=== PATIENT | female | born 1995 | race Hispanic/Latino ===

== ENCOUNTER 2022-08-11 15:53 | Observation (INO) | payer BC ==
[~2022-08-11] VITALS: Ht 152.4 cm; Wt 76.2 kg
[2022-08-11 16:01] VITALS: BP 122/76
[2022-08-12] MEDS ORDERED: PREN1TAB80 PO (19:57)
[2022-08-12] MEDS ORDERED: SYMB8060 IH (19:57)
[2022-08-12] MEDS ORDERED: FERR-82 PO (19:57)
== END 2022-08-11 17:24 | disposition home or self-care (01) ==
LOC: EDH 15:53 → LDH 15:54
PROVIDERS: ADMIT Obstetrics & Gynecology; ATTEND Obstetrics & Gynecology
DX: O46.93 Antepartum hemorrhage, unspecified, third trimester (principal); Z3A.38 38 weeks gestation of pregnancy
CPT/HCPCS: 59025 ×2; G0378; G0379